=== PATIENT | female | born 1990 | race Caucasian/White ===

== ENCOUNTER 2018-03-13 12:35 | Emergency (ER) | payer OTHER ==
[~2018-03-13] VITALS: Ht 162.6 cm; Wt 56.7 kg
== END 2018-03-13 17:32 | disposition home or self-care (01) ==
LOC: ER 12:35 → EDSEX 12:41 → ER 12:41
DX: O23.41 Unspecified infection of urinary tract in pregnancy, first trimester (principal); Z34.01 Encounter for supervision of normal first pregnancy, first trimester

== ENCOUNTER 2018-05-13 09:08 | Outpatient (CLI) | payer OTHER | END 2018-05-13 09:16 | disposition home or self-care (01) | LOC: SONOGRAMA 09:08 | DX: R74.8 Abnormal levels of other serum enzymes (principal) ==

== ENCOUNTER 2018-08-21 11:18 | Emergency (ER) | payer OTHER ==
[~2018-08-21] VITALS: Ht 165.1 cm; Wt 77.1 kg
== END 2018-08-21 18:18 | disposition home or self-care (01) ==
LOC: ER 11:18
DX: O26.892 Other specified pregnancy related conditions, second trimester (principal); R60.0 Localized edema; Z34.02 Encounter for supervision of normal first pregnancy, second trimester

== ENCOUNTER 2018-09-22 07:34 | Outpatient (CLI) | payer OTHER | END 2018-09-22 09:10 | disposition home or self-care (01) | LOC: LAB 07:34 | DX: Z34.03 Encounter for supervision of normal first pregnancy, third trimester (principal); R80.8 Other proteinuria ==

== ENCOUNTER 2024-05-16 10:09 | Emergency (ER) | payer OTHER ==
[~2024-05-16] VITALS: Ht 162.6 cm; Wt 59.0 kg
[~2024-05-16 10:09] MED LIST: APRESOLINE 10MG10 MG PO; BENZONATATE200 M1 PO; LABETALOL HCL200 MG PO; PERCOCET 5-3251 EACH PO; PRENATAL FORMU1 EAC1 PO; PRENATAL TABLE1 EAC1 PO; SURFAK240 M1 PO; ZITHROMAX500 MG PO
== END 2024-05-16 13:51 | disposition home or self-care (01) ==
LOC: ER 10:10
DX: J06.9 Acute upper respiratory infection, unspecified (principal); Z20.822 Contact with and (suspected) exposure to COVID-19